=== PATIENT | male | born 1945 | race Caucasian/White ===

== ENCOUNTER → 2023-09-25 12:57 | Outpatient (REF) | payer MEDICARE, OTHER, SELFPAY | LOC: RAD 12:57 | PROVIDERS: ATTENDING PHYSICIAN Internal Medicine Cardiovascular Disease; FAMILY PHYSICIAN Internal Medicine | DX: I65.23 Occlusion and stenosis of bilateral carotid arteries (principal) | CPT/HCPCS: 93880 ==

== ENCOUNTER → 2023-10-17 06:21 | Day surgery (SDC) | payer MEDICARE, OTHER, SELFPAY | LOC: GI 06:21 | PROVIDERS: ATTENDING PHYSICIAN Internal Medicine Gastroenterology | DX: Z12.11 Encounter for screening for malignant neoplasm of colon (principal); D12.0 Benign neoplasm of cecum; K57.30 Diverticulosis of large intestine without perforation or abscess without bleeding; K62.89 Other specified diseases of anus and rectum; K64.8 Other hemorrhoids; K29.70 Gastritis, unspecified, without bleeding; K21.9 Gastro-esophageal reflux disease without esophagitis; Q39.9 Congenital malformation of esophagus, unspecified; K31.89 Other diseases of stomach and duodenum | CPT/HCPCS: 45385; 43239; 88305; 88342 ==

== ENCOUNTER → 2023-10-31 13:43 | Outpatient (REF) | payer MEDICARE, OTHER, SELFPAY | LOC: HWRAD 13:43 | PROVIDERS: ATTENDING PHYSICIAN Internal Medicine | DX: R10.9 Unspecified abdominal pain (principal); R19.7 Diarrhea, unspecified; M54.50 Low back pain, unspecified | CPT/HCPCS: 74177; Q9967 ==

== ENCOUNTER → 2023-12-06 15:40 | Outpatient (REF) | payer MEDICARE, OTHER, SELFPAY | LOC: RAD 15:40 | PROVIDERS: ATTENDING PHYSICIAN Internal Medicine | DX: R19.7 Diarrhea, unspecified (principal); R10.9 Unspecified abdominal pain | CPT/HCPCS: 74018 ==

== ENCOUNTER → 2024-07-16 06:41 | Outpatient (REF) | payer MEDICARE, OTHER, SELFPAY | LOC: PAVMRI 06:41 | PROVIDERS: ATTENDING PHYSICIAN Orthopaedic Surgery Hand Surgery; FAMILY PHYSICIAN Internal Medicine | DX: M19.012 Primary osteoarthritis, left shoulder (principal) | CPT/HCPCS: 73221 ==

== ENCOUNTER → 2024-07-28 12:30 | Outpatient (REF) | payer MEDICARE, OTHER, SELFPAY | LOC: HWRAD 12:30 | PROVIDERS: ATTENDING PHYSICIAN Orthopaedic Surgery Hand Surgery; FAMILY PHYSICIAN Internal Medicine | DX: M19.012 Primary osteoarthritis, left shoulder (principal) | CPT/HCPCS: 73200 ==

== ENCOUNTER → 2024-09-29 13:11 | Outpatient (REF) | payer MEDICARE, OTHER, SELFPAY | LOC: RAD 13:11 | PROVIDERS: ATTENDING PHYSICIAN Internal Medicine Cardiovascular Disease; FAMILY PHYSICIAN Internal Medicine | DX: I65.23 Occlusion and stenosis of bilateral carotid arteries (principal) | CPT/HCPCS: 93880 ==

== ENCOUNTER 2024-10-07 06:33 | Day surgery (SDC) | payer MEDICARE, OTHER, SELFPAY ==
[2024-09-22 13:21] VITALS: BMI 28.1
[2024-09-22 13:54] LABS: Hematocrit 46.1 % (39.0-52.0); Hemoglobin 15.6 g/dL (13.0-18.0); Mean Corp Hgb Conc. 33.8 g/dL (33.0-37.0); Mean Corpuscular Hgb 30.3 pg (27.0-31.0); Mean Corpuscular Volume 89.5 fL (80.0-94.0); Mean Platelet Volume 9.9 fL (7.4-10.4); Platelet Count 166 10^3/uL (130-400); Red Blood Cell Count 5.15 10^6/uL (4.70-6.10); White Blood Cell Count 7.1 10^3/uL (4.8-10.8)
[2024-09-22 14:13] LABS: Glycohemoglobin (HgbA1c) 5.5 % (4.0-5.6)
[2024-09-22 14:24] LABS: ALT (SGPT) 18 U/L (0-50); AST (SGOT) 31 U/L (17-59); Albumin 4.8 g/dl (3.5-5.0); Alkaline Phosphatase 72 U/L (38-126); Blood Urea Nitrogen 29 mg/dl (9-20); Calcium 9.7 mg/dl (8.4-10.2); Carbon Dioxide 27 mmol/L (22-30); Chloride 108 mmol/L (98-107); Estimated Creatinine Clearance 64 ml/min; Glucose 115 mg/dl (70-99); Potassium 4.2 mmol/L (3.5-5.1); Sodium 142 mmol/L (135-145); Total Bilirubin 0.9 mg/dl (0.2-1.3); Total Protein 7.3 g/dl (6.3-8.2); eGFR > 60.00
[2024-09-22 16:07] VITALS: BMI 28.1
--- NOTE | 2024-09-29 12:39 | CM ---
Cm reviewed medical records. CM spoke with patient via phone. CM confirmed demographics. Patient lives independently. Patient does not have a history of VN or SNF. Patient is active with his PCP. Patient has medication coverage.
PLAN: Home, SDS
[2024-10-07] VITALS (10 sets, daily range): BP systolic 97–151; BP diastolic 69–96
[2024-10-07] MEDS: NORMOSOL-R/PLASMALYTE-A 1000 IV (07:25)
[2024-10-07] MEDS: TYLENOL 1000 MG PO (07:25)
[2024-10-07] MEDS: CELEBREX 200 MG PO (07:25)
[2024-10-07] MEDS: ANCEF 5 IV (13:05)
== END 2024-10-07 13:35 | disposition home or self-care (01) ==
LOC: SDS 06:33
PROVIDERS: ATTENDING PHYSICIAN Orthopaedic Surgery Hand Surgery; FAMILY PHYSICIAN Internal Medicine; REFERRING PHYSICIAN Internal Medicine Cardiovascular Disease
DX: M19.012 Primary osteoarthritis, left shoulder (principal)
CPT/HCPCS: 23472; 36415; 73020; 80053; 83036; 85027; 87070; C1713; C1776

== ENCOUNTER → 2025-01-28 18:13 | Outpatient (REF) | payer MEDICARE, OTHER, SELFPAY | LOC: PAVMRI 18:13 | PROVIDERS: ATTENDING PHYSICIAN Physical Medicine & Rehabilitation; FAMILY PHYSICIAN Internal Medicine | DX: M54.16 Radiculopathy, lumbar region (principal) | CPT/HCPCS: 72148 ==